=== PATIENT | male | born 1955 | race Caucasian/White ===

== ENCOUNTER 2016-04-08 15:58 | Emergency (ER) | payer BC | END 2016-04-08 18:55 | disposition home or self-care (01) | LOC: D.ER 15:58 | DX: R11.0 Nausea (principal); R79.89 Other specified abnormal findings of blood chemistry; E11.9 Type 2 diabetes mellitus without complications; I10 Essential (primary) hypertension ==

== ENCOUNTER 2017-09-29 03:12 | Emergency (ER) | payer BC ==
[~2017-09-29] VITALS: Ht 175.3 cm; Wt 84.1 kg
[2017-09-29 03:18] VITALS: Ht 175.3 cm; Wt 84.1 kg
[2017-09-29] MEDS ORDERED: NEURONTIN800 MG PO (03:19)
[2017-09-29] MEDS ORDERED: CRESTOR10 MG PO (03:20)
[2017-09-29] MEDS ORDERED: GLUCOPHAGE500 MG PO (03:20)
[2017-09-29] MEDS ORDERED: PRINIVIL20 MG PO (03:21)
[2017-09-29] MEDS ORDERED: FERROUS SULFAT325 MG PO (03:21)
[2017-09-29] MEDS ORDERED: VITAMIN B-122500 MCG PO (03:22)
[2017-09-29 04:01] LABS: BASOPHILS 0.7 % (0-2); EOSINOPHILS 3.5 % (0-7); IMMATURE GRANULOCYTES 0.2 % (0-5); LYMPHOCYTES 28.4 % (15-50); MCH 38.2 pg (26.0-34.0); MCHC 34.4 g/dL (31.0-37.0); MEAN PLATELET VOLUME 11.6 fL (7.4-10.4); MONOCYTES 13.1 % (2-11); NEUTROPHILS 54.1 % (40-80); PLATELET COUNT 113 10x3/uL (130-400); RDW 14.3 % (11.5-14.5); WBC 9.9 10x3/uL (4.8-10.8)
[2017-09-29 04:14] LABS: HEMATOCRIT 15.1 % (42.0-54.0); HEMOGLOBIN 5.2 g/dL (13.5-17.5); RBC 1.36 10x6/uL (4.20-6.10)
[2017-09-29 04:22] LABS: ALBUMIN 2.2 g/dL (3.4-5.0); ANION GAP 21.4 mmol/L (8-16); BILIRUBIN - TOTAL 2.87 mg/dL (0.2-1.3); CALCIUM 8.6 mg/dL (8.5-10.1); CARBON DIOXIDE 18.4 mmol/L (21.0-32.0); CREATININE - SERUM 3.2 mg/dL (0.6-1.3); POTASSIUM - SERUM 5.8 mmol/L (3.5-5.1); PROTEIN - SERUM 5.8 g/dL (6.4-8.2)
[2017-09-29 05:00] LABS: INR 1.81 (0.85-1.17); PROTIME 20.4 SECONDS (11.6-15.0)
[2017-09-29 05:08] LABS: APPEARANCE HAZY (CLEAR); COLOR YELLOW (YELLOW); GLUCOSE NEGATIVE (NEGATIVE); NITRITE NEGATIVE (NEGATIVE); PROTEIN NEGATIVE (NEGATIVE); SPECIFIC GRAVITY 1.015 (1.005-1.020)
[2017-09-29 05:09] LABS: BILIRUBIN NEGATIVE (NEGATIVE); EPITHELIAL CELLS NSEEN /hpf (0-5); KETONE MODERATE mg/dL (NEGATIVE); UROBILINOGEN NORMAL (NORMAL); WHITE CELLS - URINE NSEEN /hpf (0-5)
[2017-09-29 07:17] VITALS: BP 126/42
[2017-11-28 12:38] VITALS: Ht 175.3 cm; Wt 84.1 kg
== END 2017-09-29 07:17 | disposition other institution (70) ==
LOC: D.ER 03:12
PROVIDERS: Family Medicine
DX: R04.0 Epistaxis (principal); D62 Acute posthemorrhagic anemia; N17.9 Acute kidney failure, unspecified

== ENCOUNTER 2017-11-28 08:55 | Outpatient (CLI) | payer BC ==
[~2017-11-28] VITALS: Ht 175.3 cm; Wt 83.6 kg
[~2017-11-28 08:55] MED LIST: CRESTOR10 MG PO; FERROUS SULFAT325 MG PO; GLUCOPHAGE500 MG PO; NEURONTIN800 MG PO; PRINIVIL20 MG PO; VITAMIN B-122500 MCG PO
[2017-11-28 12:38] VITALS: Ht 175.3 cm; Wt 83.6 kg
[2017-11-28 16:13] LABS: BASOPHILS 1.1 % (0-2); EOSINOPHILS 4.7 % (0-7); HEMOGLOBIN 9.3 g/dL (13.5-17.5); IMMATURE GRANULOCYTES 0.2 % (0-5); LYMPHOCYTES 14.1 % (15-50); MCH 34.2 pg (26.0-34.0); MCHC 34.4 g/dL (31.0-37.0); MCV 99.3 fL (80.0-100.0); MEAN PLATELET VOLUME 11.4 fL (7.4-10.4); MONOCYTES 14.7 % (2-11); NEUTROPHILS 65.2 % (40-80); RBC 2.72 10x6/uL (4.20-6.10); RDW 19.4 % (11.5-14.5); WBC 6.4 10x3/uL (4.8-10.8)
[2017-11-28 16:26] LABS: PLATELET COUNT 78 10x3/uL (130-400)
[2017-11-28 18:28] LABS: PLATELET ESTIMATE DECREASED
== END 2017-11-28 16:10 | disposition home or self-care (01) ==
LOC: D.OPS 08:55
PROVIDERS: Family Medicine
DX: D64.9 Anemia, unspecified (principal); Z01.812 Encounter for preprocedural laboratory examination

== ENCOUNTER 2017-12-29 08:50 | Outpatient (CLI) | payer BC ==
[~2017-12-29] VITALS: Ht 175.3 cm; Wt 84.1 kg
[2017-12-29 10:23] VITALS: BP 123/63; Ht 175.3 cm; Wt 84.1 kg
== END 2017-12-29 16:30 | disposition home or self-care (01) ==
LOC: D.OPS 08:50
DX: D69.6 Thrombocytopenia, unspecified (principal); Z01.812 Encounter for preprocedural laboratory examination

== ENCOUNTER 2018-01-02 07:43 | Outpatient (CLI) | payer BC ==
[~2018-01-02] VITALS: Ht 175.3 cm; Wt 84.1 kg
[2018-01-02 08:12] LABS: BASOPHILS 1.7 % (0-2); EOSINOPHILS 9.8 % (0-7); HEMATOCRIT 26.6 % (42.0-54.0); HEMOGLOBIN 8.8 g/dL (13.5-17.5); IMMATURE GRANULOCYTES 0.6 % (0-5); LYMPHOCYTES 30.1 % (15-50); MCHC 33.1 g/dL (31.0-37.0); MCV 99.6 fL (80.0-100.0); MONOCYTES 12.2 % (2-11); NEUTROPHILS 45.6 % (40-80); RBC 2.67 10x6/uL (4.20-6.10); RDW 20.5 % (11.5-14.5); WBC 8.2 10x3/uL (4.8-10.8)
[2018-01-02 08:13] LABS: PLATELET COUNT 115 10x3/uL (130-400)
[2018-01-02 08:15] LABS: ANION GAP 18.3 mmol/L (8-16); CALCIUM 8.7 mg/dL (8.5-10.1); CARBON DIOXIDE 17.7 mmol/L (21.0-32.0); CREATININE - SERUM 1.9 mg/dL (0.6-1.3)
[2018-01-02 08:17] LABS: APTT 40.2 SECONDS (22.8-39.4); INR 1.52 (0.85-1.17); PROTIME 17.8 SECONDS (11.6-15.0)
[2018-01-02] MEDS ORDERED: VOLTAREN100 GM TOPICAL (09:08)
[2018-01-02] MEDS ORDERED: K-TAB10 MEQ PO (09:09)
[2018-01-02] MEDS ORDERED: FUROSEMIDE20 MG PO (09:09)
[2018-01-02] MEDS ORDERED: METOPROLOL TART50 MG PO (09:10)
[2018-01-02 09:13] VITALS: BP 94/43; Ht 175.3 cm; Wt 84.1 kg
== END 2018-01-02 13:45 | disposition home or self-care (01) ==
LOC: D.SP 07:43
PROVIDERS: Radiology Diagnostic Radiology
DX: D64.9 Anemia, unspecified (principal); Z01.812 Encounter for preprocedural laboratory examination

== ENCOUNTER 2018-01-23 15:15 | Inpatient (IN) | payer BC ==
[~2018-01-23] VITALS: Ht 175.3 cm; Wt 101.7 kg
--- NOTE | ~2018-01-23 | EC ---
PATIENT:RIVERA SANDOVAL DATE OF SERVICE: 01/24/18 SEX: M MEDICAL RECORD: [id number] DATE OF : 55 LOCATION:[facility] AGE OF PATIENT: 62 ADMISSION DATE: 01/24/18 REFERRING PHYSICIAN: INTERPRETING PHYSICIAN: BEN MAZARIEGOS MD ECHOCARDIOGRAM REPORT ECHO CHARGES 4 ECHO COMPLETE Date: 01/27/18 CLINICAL DIAGNOSIS: KIDNEY FAILURE, SOB ECHOCARDIOGRAPHIC MEASUREMENTS (adult normal given) AC root (d.<3.7cm) 2.8 cm LV Septum d (<1.2 cm> 1.2 cm Valve Excursion 1.5 cm LV Septum (systole) 2.0 cm Left Atria (s.<4.0cm> 2.8 cm LVPW d(<1.2cm) 1.3 cm RV (d.<2.3cm) 3.2 cm LVPW (sytole) 1.3 cm LV diastole(<5.6CM) 5.1 cm MV E-F(>70mm/sec) cm LV systole 4.3 cm LVOT Diameter 2.0 cm MV exc.(>10mm) cm Est.ejection fraction (50-75%) % DOPPLER: LVIT cm/sec A 79 cm/sec E 80 cm/sec LA cm/sec RVSP 20.8 mmHg LVOT 108 cm/sec AOP1/2T m/s Asc. Ao 154 cm/sec RVOT 128 cm/sec RA cm/sec PA 128 cm/sec AV Gradient Peak 9.5 mmHg AV Mean 6.6 mmHg AV Area 1.8 cm MV Gradient Peak 3.6 mmHg MV Mean 2.1 mmHg MV Area cm COMMENTS: Wire Brusher: Kristy LIAO [employer] Fabricator: Moon Mazariegos TAPE# PACS Pericardial Effusion N DATE OF SERVICE: PROCEDURE: Transthoracic echocardiogram. FINDINGS: 1. The left ventricle is hyperdynamic. Ejection fraction is 65% to 70%. 2. No regional wall motion abnormalities with inflow characteristics that are normal. 3. The aortic valve is normal. 4. The mitral valve is normal. ECHOCARDIOGRAM REPORT [id number] RIVERA SANDOVAL 5. The tricuspid valve is normal with trace tricuspid regurgitation. The RVSP is normal. 6. The right ventricle is mildly dilated. 7. The right atrium is normal. 8. The pulmonic valve is grossly normal. No significant pulmonic insufficiency. 9. There was no significant pericardial effusion. CONCLUSIONS: This is a normal echocardiogram with evidence of mild left ventricular hypertrophy, otherwise no significant pathology identified. TRANSINT:[id number] Voice Confirmation ID: [id number] DOCUMENT ID: [id number] BEN MAZARIEGOS MD at 0916 CC: [id number] DICTATION DATE: 01/28/18 1000 CFD ENGINEER: 01/28/18 1050 DIS IN 01/29/18 [id number] [place] [address]
--- NOTE | ~2018-01-23 | HEMODYNAMI ---
PATIENT:RIVERA SANDOVAL MEDICAL RECORD: [id number] : 55 LOCATION:[facility] D.2306 ADMISSION DATE: 01/24/18 Generatedon:01/28/201817:44 Patient name: RIVERA SANDOVAL Patient #: [id number] SSN: : 1955 Date of study: 01/28/2018 Page: Of Hemodynamic Procedure Report Patient Data Patient Demographics First Name: RIVERA Gender: Male Last Name: JAIME : 1955 Middle Initial: FLAQUITA Age: 62 year(s) Patient #: [id number] Race: Unknown Additional ID: [id number] Contact details Address: [address] [place], [place] [address] [facility] State: [place] City: [place] Zip code: [address] Admission Admission Data Admission Date: 01/24/2018 Admission Time: 8:33 Room #: D.2306 Height (in.): 69 BSA: 2.17 (m2) Height (cm.): 175.26 BMI: 33.08 (kg/m2) Weight (lbs.): 224 Weight (kg.): 101.6 Procedure Procedure Types Cath Procedure Peripheral Cath Diagnostic Procedure Frequency Checker Peripheral Procedures Abd/Extremity Visceral/Mesenteric Mesenteric Arteriogram (Abd Artery) Procedure Description Procedure Date Procedure Date: 01/28/2018 Procedure Start Time: 16:38 Procedure Staff Name Function Quinn Pacheco MD Performing Physician Dali Craven RT Vp Software Engineering Tennille Lim RN Nurse Rafael Greco RT Scrub Procedure Data Cath Procedure Fluoroscopy Diagnostic fluoroscopy Total fluoroscopy Time: 7.6 time: 7.6 min min Diagnostic fluoroscopy Total fluoroscopy dose: dose: 4058 mGy 4058 mGy Contrast Material Contrast Material Type Amount (ml) Isovue 300 95 Diagnostic catheters Device Type Used For End Catheter Placement Merit ULTRA BOLUS FLUSH 5Fr 65CM catheter ([id number]) Merit Impress 5Fr SIM 1 Catheter ([id number]) Angiodynamics SOS OMNI 2 NON B 5FR 65CM catheter ([id number]) Procedure Medications Medication Administration Route Dosage Heparin Flush Bag added to field 3 bags (1000units/500ml NS) Lidocaine 1% added to field 20 Benadryl I.V. 25 mg Versed I.V. 1 mg Hemodynamics Rest BSA: 2.17 (m2) O2 Consumption: Estimated: 295.12 (ml/min) O2 Consumption indexed : Estimated:136 (ml/min/m) Pre Cath Intra NCS Post Cath Vital Signs Time etCO2 NIBP (mmHg) Rhythm Pain Sedation (mmHg) Status Level 16:23:58 0 112/42(81) NSR 0 (11) , 10(A) No pain 16:28:17 0 122/39(67) NSR 0 (11) , 10(A) No pain 16:32:29 0 120/48(81) NSR 0 (11) , 10(A) No pain 16:36:45 0 117/40(84) NSR 0 (11) , 10(A) No pain 16:41:44 0 Measuring NSR 0 (11) , 10(A) No pain 16:41:58 0 103/40(83) NSR 0 (11) , 10(A) No pain 16:46:14 0 120/39(79) NSR 0 (11) , 10(A) No pain 16:50:28 0 122/48(76) NSR 0 (11) , 10(A) No pain 16:54:50 0 129/45(93) NSR 0 (11) , 10(A) No pain 16:59:49 0 Measuring NSR 0 (11) , 10(A) No pain 17:00:10 0 124/26(84) NSR 0 (11) , 10(A) No pain 17:04:30 0 129/44(93) NSR 0 (11) , 10(A) No pain 17:08:50 0 130/48(100) NSR 0 (11) , 10(A) No pain 17:13:49 0 Measuring NSR 0 (11) , 10(A) No pain 17:14:09 0 128/43(81) NSR 0 (11) , 10(A) No pain 17:18:30 0 131/41(87) NSR 0 (11) , 10(A) No pain 17:22:48 0 130/44(89) NSR 0 (11) , 10(A) No pain 17:27:10 0 128/47(82) NSR 0 (11) , 10(A) No pain 17:31:34 0 138/45(94) NSR 0 (11) , 10(A) No pain 17:35:58 0 126/41(91) NSR 0 (11) , 10(A) No pain 17:40:23 0 123/41(81) NSR 0 (11) , 10(A) No pain Medications Time Medication Route Dose Verified Delivered Reason Notes Effec tiveness by by 16:35:24 Heparin Flush added 3 Quinn Ball used for Bag to bags Tara Pacheco procedure (1000units/500ml field MD LORENZO NS) 16:35:35 Lidocaine 1% added 20ml Quinn Ball used for to vial Tara Pacheco procedure field MD LORENZO 16:44:50 Benadryl I.V. 25 mg Quinn Null for Tara Lim RN sedation 16:45:01 Versed I.V. 1 mg Quinn Null for Tara Lim RN sedation Procedure Log Time Note 16:03:35 Patient Height : 69 inches 16:03:44 Patient Weight : 224 lbs 16:04:12 Use device set IR Diagnostic 16:06:12 BENTSON 145cm wire ([id number]) opened to sterile field. 16:06:13 Micropuncture VSI 4FR kit opened to sterile field. 16:06:14 SHEATH 5FR Claiborne (TUI533) opened to sterile field. 16:06:15 TUBING Contrast Injection High Pressure (OSL251O) opened to sterile field. 16:06:16 Tegaderm 4 x 4 (1626W) opened to sterile field. 16:06:17 Sterile Angiographic Pack opened to sterile field. 16:06:18 Bag Decanter (2002S) opened to sterile field. 16:06:19 ACIST Manifold (18922) opened to sterile field. 16:06:20 ACIST Hand Control (17127) opened to sterile field. 16:06:21 ACIST Syringe (16293) opened to sterile field. 16:22:46 Vital chart was started 16:24:32 Time tracking: Call back (After hours or weekends) 16:24:40 Plan of Care:Hemodynamics will remain stable., Cardiac rhythm will remain stable., Comfort level will be maintained., Respiratory function will remain adequate., Patient/ family verbilizes understanding of procedure., Procedure tolerated without complication., Recovers from procedure without complications.. 16:24:54 Patient received from ICU to IR on bypap machine in resp.distress. Tansferred to table in Supine position. 16:26:49 patient in resp distress on by pap. unable to obtain answers for pre anesthesia 16:27:36 - 16:27:55 H&P Date Dictated: 01/28/2018 Emergent; H&P N/A. 16:28:00 Family in waiting room. 16:28:03 Patient NPO since Midnight. 16:28:08 Is the patient allergic to Iodine/contrast media? No. 16:28:16 - 16:29:06 A Merit ULTRA BOLUS FLUSH 5Fr 65CM catheter ([id number]) was advanced over the wire and used for . 16:29:10 A Merit Impress 5Fr SIM 1 Catheter ([id number]) was advanced over the wire and used for . 16:35:12 - 16:35:17 Physician arrived 16:35:20 --------ALL STOP TIME OUT------ 16:35:21 Final Timeout: patient, procedure, and site verified with staff and physician. All members of the team are in agreement. 16:35:24 Heparin Flush Bag (1000units/500ml NS) 3 bags added to field was administered by Quinn Pacheco MD; used for procedure; 16:35:35 Lidocaine 1% 20ml vial added to field was administered by Quinn esquivel MD; used for procedure; 16:38:31 Procedure started. 16:38:31 Full Disclosure recording started 16:38:37 Local anesthetic to left femerol artery with Lidocaine 1% by Quinn Pacheco MD.INITIAL ACCESS ONLY 16:44:23 Angiography was performed. 16:44:50 Benadryl 25 mg I.V. was administered by Tennille Lim RN; for sedation; 16:45:01 Versed 1 mg I.V. was administered by Tennille Lim RN; for sedation; 16:51:03 TRANSEND STEERABLE wire ([id number]) opened to sterile field. 16:51:23 Direxion Straight Microcatheter ([id number]) opened to sterile field. 16:53:20 A AngioQuench OMNI 2 NON B 5FR 65CM catheter ([id number]) was advanced over the wire and used for . 17:06:39 COIL HILAL 2.0-2 (O83462) opened to sterile field. 17:09:26 COIL HILAL 2.0-2 (Q77175) opened to sterile field. 17:12:28 COIL HILAL 2.0-2 (S36732) opened to sterile field. 17:18:29 A second vessel is accessed to embolize. 17:18:29 COIL Micronester 3mm (S30684) opened to sterile field. 17:20:24 COIL Micronester 3mm (R02034) opened to sterile field. 17:22:00 COIL Micronester 3mm (Z35001) opened to sterile field. 17:22:06 COIL Micronester 3mm (L58910) opened to sterile field. 17:25:26 pt on bipap. o2 and hr monitored on icu monitor 17:26:16 Tegaderm 6 x 8 (1628) opened to sterile field. 17:27:44 Dr. Pacheco sutered in the 5 portuguese sheath with 2.0 silk. 17:28:02 Procedure ended.(Physican Out) 17:28:48 Fluoroscopy time 07.60 minutes. 17:28:58 Fluoroscopy dose: 4058 mGy 17:28:58 Flurop Dose total: 4058 17:29:07 Contrast amount:Isovue 300 95ml. 17:29:10 Sharps counted by scrub and verified . 17:30:04 2.0 silk was sutured in with ?. 17:30:19 5 portuguese sheath was sutured in with 2.0 silk and covered with 4x4 and 6x8 tegaderm. 17:33:13 Patient needs reinforcement of post procedure teaching. 17:33:30 Procedure and supply charges have been captured, reviewed, submitted an d are correct. 17:35:41 See physician's report for complete and final results. 17:43:43 Report given to ICU. 17:43:46 Patient transfered to ICU with Bed. 17:44:15 Vital chart was stopped Device Usage Item Name Manufacture Quantity Catalog Number Hospital Part Current M inimal Lot# / Charge Number Stock Stock Serial# Code SHAYLA 145cm Cook Medical 1 [id number] [id number] 5 wire ([id number]) Micropuncture VSI VASCULAR 1 [id number] 288164 455966 5 VSI 4FR kit SOLUTIONS SHEATH 5FR Terumo 1 [id number] 736491 474036 158910 4 0 Claiborne (TRE164) TUBING [facility] Medical 1 [id number] 490876 244586 636771 5 Contrast Injection High Pressure ([id number]) Tegaderm 4 x 4 3M 1 1626W 763212 709818 579143 5 (1626W) Sterile Cardinal 1 [id number] 122992 689881 5 Angiographic Health Pack Bag Decanter Microtek 1 877252 56284 968719 5 () Medical Inc. ACIST Manifold Acist Medical 1 75414 925650 529574 965943 5 (82563) Systems Inc ACIST Hand Acist Medical 1 89754 618377 988630 906824 5 Control Systems Inc (18587) ACIST Syringe Acist Medical 1 81096 829378 445772 400554 2 0 (94949) Systems Inc Happy Inspector ULTRA [facility] Medical 1 [id number] 286560 014588 5 BOLUS FLUSH 5Fr 65CM catheter ([id number]) Merit Impress Merit Medical 1 [id number] 750082 524746 178342 5 5Fr SIM 1 Catheter ([id number]) TRANSEND [place] 1 [id number] 043225 069284 5 STEERABLE wire Scientific ([id number]) Direxion [place] 1 [id number] 192297 499159 397511 5 Straight Scientific Microcatheter ([id number]) Angiodynamics Angiodynamics 1 [id number] 950043 59716 565806 5 SOS OMNI 2 NON B 5FR 65CM catheter ([id number]) COIL HILAL BeGo [facility] 3 O60155 516999 960859 5 2700506 2.0-2 (J45880) 6780173 0769442 COIL BeGo [facility] 4 D14128 309678 873907 1 [id number] Micronester [id number] 3mm (Q48811) 7012001 0666577 Tegaderm 6 x 8 3M 1 1624 507787 616359 5 (1628) Signature Audit [place] Stage Time Signature Unsigned Intra-Procedure 01/28/2018 Rafael 5:44:13 PM [place] RT (R) (CV) [facility] [address] [facility] [place] [address]
--- NOTE | ~2018-01-23 | OP ---
PATIENT NAME: RIVERA SANDOVAL MEDICAL RECORD: [id number] :55 LOCATION:[facility] D.2306 ADMISSION DATE:01/24/18 SURGEON: LASHAY REYNA MD DATE OF OPERATION: 01/25/2018 PROCEDURE: EGD with biopsy. SORTING GRAPPLE OPERATOR: Lashay Reyna MD SCOPE: Olympus video gastroscope. MEDICATIONS: Per TIVA anesthesia. The patient received 90 mg of propofol for this procedure, O2 at 4 liters. REASON FOR THE EGD: Profound anemia with no obvious source of bleeding. Of note, the patient had an EGD approximately 1 month ago in [place] at the [facility] and reportedly this procedure was unremarkable. The patient also had a colonoscopy with Dr. Sorensen last year, which did not have any significant findings per the patient. The patient has been experiencing nausea, vomiting, without obvious bleeding, but does have risk factors for use of nonsteroidal anti-inflammatory drugs and alcohol. His hemoglobin was 6 on admission and to date, he has received 5 units of packed red blood cells and 1 unit of pheresed platelets and 2 units of FFP. The patient has acute kidney insufficiency and is on dialysis. Additionally, he has possibly early liver failure with coagulopathy, encephalopathy, elevated liver enzymes, fatty infiltration of the liver, and splenomegaly. For his anemia, which has been ongoing for the past couple of months, it should be noted that he had a severe nosebleed, which could have attributed back a month ago to the low hemoglobin and hematocrit, but this should have resolved by at this time as he did have photocoagulation of the septum. The patient has had a bone marrow biopsy with Dr. Faith, which was normal. We are looking for a source of this continued blood loss and he will have an EGD this date. FINDINGS: Informed consent was given. The patient was made comfortable with the above medications and after reaching an adequate level of sedation by slow IV push, the patient was placed on his left side. The endoscope was then advanced under direct visualization through the posterior pharyngeal area and advanced to the distal esophagus. Erosions were seen in this area likely due to gastroesophageal reflux disease and biopsies were obtained as well as photodocumentation. No ulcers or stricture was appreciated. On entering the stomach, global erythema, edema, and inflammation were noted throughout. The tissue was congested, inflamed, erythematous, but no ulcers were seen. Multiple biopsies were taken of marked inflammation at the antral area for histopathology and to look for the presence of H. pylori. The duodenal bulb was also markedly congested with irritation, erythema, and edema, and biopsies were obtained. There appears to be some functional narrowing as a result of this and this could be impacting on the problem of pancreatitis. We will evaluate the patient's liver, pancreas, and spleen in more detail with a CT of the abdomen and pelvis, which will be done without IV contrast tonight. We will attempt to get the patient to drink some oral contrast if he is able. He possibly has ascites at this time as his abdomen is distended. The scope was then withdrawn. OPERATIVE REPORT [id number] RIVERA SANDOVAL IMPRESSION: 1. Erosive esophagitis. No ulcers. No stricture seen. 2. Global gastric severe inflammation with erythema, edema, and congestion, most pronounced at the antral area and biopsied. 3. Marked inflammation, functional narrowing, congestion, erythema, and edema of the duodenal bulb and C loop. This may be adding to the problem of pancreatitis. Multiple biopsies obtained. The second portion of the duodenum had inflammation and congestion, but to a lesser extent. PLAN: 1. Protonix drip at 8 mg an hour. 2. Carafate slurry 1 g p.o. q.i.d. 3. Famotidine 40 mg at bedtime. 4. No anti-inflammatory drugs. 5. Follow liver function test, amylase and lipase. 6. CT of the abdomen and pelvis tonight without IV contrast, but with oral contrast. TRANSINT:[id number] Voice Confirmation ID: [id number] DOCUMENT ID: [id number] LASHAY REYNA MD at 1304 CC: [id number] DICTATION DATE: 01/25/18 182 PANAMA HAT HYDRAULIC PRESS OPERATOR: 01/26/18 0257 DIS IN 01/29/18 [facility] [address] [id number]
--- NOTE | ~2018-01-23 | DS ---
PATIENT:RIVERA SANDOVAL :55 MEDICAL RECORD: [id number] DISCHARGE SUMMARY ADMISSION DATE: 01/24/18 DISCHARGE DATE: 01/29/18 DATE OF ADMISSION: 01/24/2018 DATE OF DISCHARGE: The patient on 01/29/2018 Cause of the patient's was hemorrhage. The patient was originally admitted for acute blood loss anemia. OTHER DIAGNOSES: Include fall from standing and posterior rib fractures on the right. The patient had bleeding infarcted bowel I believe during his hospital stay. CONSULTATIONS: Included gastroenterology, interventional radiology, general surgery, pulmonology, intensive care, nephrology. HOSPITAL COURSE: The patient had multiple blood transfusions. He had coil embolization of bleeding blood vessels by Dr. Pacheco. The patient on 01/29/2018 at 0154 and was pronounced at 0154. The wire photo operator news was notified. Mandrel Maker notified was Dr. Boris Edmondson at 0245. The home notified was [facility] Release authorization is received from Josefina Mejia, the patient's . TRANSINT:[id number] Voice Confirmation ID: [id number] DOCUMENT ID: [id number] FRANCHESKA SANCHEZ MD at 0950 CC: [id number] DICTATION DATE: 02/14/18 1503 AMMUNITION STORAGE SUPERINTENDENT: 02/15/18 0017 DIS IN 01/29/18 [facility] [address] [place] [address]
[~2018-01-23 15:15] MED LIST changes: +FUROSEMIDE20 MG PO; +K-TAB10 MEQ PO; +METOPROLOL TART50 MG PO; +VOLTAREN100 GM TOPICAL
[2018-01-23] MEDS ORDERED: NEURONTIN 400400 MG PO (15:48)
[2018-01-23] MEDS ORDERED: ZOFRAN ODT4 MG/UDTAB PO (15:49)
[2018-01-23 16:15] VITALS: BP 117/36
[2018-01-23 19:18] LABS: % SATURATION 46 % (15-55); IRON 84 ug/dl (35-150); TOTAL IRON BIND CAPACITY 182 ug/dl (260-445); UNSAT IRON BIND CAPACITY 98 ug/dl (150-375)
[2018-01-23 20:00] VITALS: BP 95/39
[2018-01-23 22:00] LABS: HEMOGLOBIN 6.2 g/dL (13.5-17.5)
[2018-01-24] VITALS (21 sets, daily range): BP systolic 90–141; BP diastolic 31–75; Ht 175.3 cm; Wt 101.7 kg
[2018-01-24 07:14] LABS: BASOPHILS 0.8 % (0-2); EOSINOPHILS 7.9 % (0-7); IMMATURE GRANULOCYTES 0.2 % (0-5); LYMPHOCYTES 13.3 % (15-50); MCH 35.1 pg (26.0-34.0); MCHC 35.1 g/dL (31.0-37.0); MEAN PLATELET VOLUME 12.1 fL (7.4-10.4); MONOCYTES 14.8 % (2-11); WBC 8.3 10x3/uL (4.8-10.8)
[2018-01-24 07:26] LABS: PLATELET COUNT 59 10x3/uL (130-400)
[2018-01-24 07:28] LABS: HEMATOCRIT 17.1 % (42.0-54.0); INR 2.46 (0.85-1.17); RBC 1.71 10x6/uL (4.20-6.10)
[2018-01-24 07:33] LABS: ALBUMIN 2.2 g/dL (3.4-5.0); ANION GAP 22.6 mmol/L (8-16); BILIRUBIN - TOTAL 3.61 mg/dL (0.2-1.3); CALCIUM 7.7 mg/dL (8.5-10.1); CARBON DIOXIDE 15.7 mmol/L (21.0-32.0); CHOL - HDL RATIO 13.6 ratio (2.3-4.9); CREATININE - SERUM 8.6 mg/dL (0.6-1.3); LDL-HDL RATIO 10.6 ratio (1.5-3.5); PRE-ALBUMIN 10.4 mg/dL (18.0-35.7); PROTEIN - SERUM 6.6 g/dL (6.4-8.2)
[2018-01-24 07:58] LABS: POTASSIUM - SERUM 7.3 mmol/L (3.5-5.1)
[2018-01-24 09:56] LABS: HEMATOCRIT 20.3 % (42.0-54.0)
[2018-01-24 09:59] LABS: HEMOGLOBIN 7.1 g/dL (13.5-17.5)
[2018-01-24 17:01] LABS: HEMATOCRIT 21.4 % (42.0-54.0)
[2018-01-24 17:09] LABS: HEMOGLOBIN 7.3 g/dL (13.5-17.5)
[2018-01-24 17:19] LABS: ANION GAP 24.8 mmol/L (8-16); CALCIUM 8.2 mg/dL (8.5-10.1); CARBON DIOXIDE 15.8 mmol/L (21.0-32.0); CREATININE - SERUM 8.5 mg/dL (0.6-1.3)
[2018-01-24 17:42] LABS: POTASSIUM - SERUM 7.6 mmol/L (3.5-5.1)
[2018-01-25] VITALS (24 sets, daily range): BP systolic 71–149; BP diastolic 42–125
[2018-01-25 00:50] LABS: HEMATOCRIT 21.6 % (42.0-54.0); HEMOGLOBIN 7.7 g/dL (13.5-17.5)
[2018-01-25 04:41] LABS: BASOPHILS 0.5 % (0-2); EOSINOPHILS 6.6 % (0-7); HEMATOCRIT 25.6 % (42.0-54.0); IMMATURE GRANULOCYTES 0.2 % (0-5); LYMPHOCYTES 10.8 % (15-50); MCH 31.9 pg (26.0-34.0); MCHC 35.2 g/dL (31.0-37.0); MEAN PLATELET VOLUME 11.5 fL (7.4-10.4); MONOCYTES 11.8 % (2-11); NEUTROPHILS 70.1 % (40-80); PLATELET COUNT 60 10x3/uL (130-400); WBC 8.3 10x3/uL (4.8-10.8)
[2018-01-25 04:53] LABS: PROTIME 21.4 SECONDS (11.6-15.0)
[2018-01-25 04:54] LABS: MCV 90.8 fL (80.0-100.0); RBC 2.82 10x6/uL (4.20-6.10)
[2018-01-25 04:59] LABS: INR 1.92 (0.85-1.17)
[2018-01-25 05:23] LABS: ALBUMIN 2.4 g/dL (3.4-5.0); BILIRUBIN - DIRECT 2.42 mg/dL (0.00-0.30); BILIRUBIN - INDIRECT 2.86 mg/dL (0.00-1.00); BILIRUBIN - TOTAL 5.28 mg/dL (0.2-1.3); CALCIUM 7.8 mg/dL (8.5-10.1); PHOSPHOROUS 6.6 mg/dL (2.5-4.9); PROTEIN - SERUM 6.6 g/dL (6.4-8.2)
[2018-01-25 05:26] LABS: CARBON DIOXIDE 27.8 mmol/L (21.0-32.0); CREATININE - SERUM 6.2 mg/dL (0.6-1.3); POTASSIUM - SERUM 4.8 mmol/L (3.5-5.1)
[2018-01-25 08:01] LABS: HEMATOCRIT 25.3 % (42.0-54.0); HEMOGLOBIN 9.1 g/dL (13.5-17.5)
[2018-01-25 14:47] LABS: HEMATOCRIT 25.3 % (42.0-54.0); HEMOGLOBIN 8.9 g/dL (13.5-17.5)
[2018-01-25 21:29] LABS: HEMOGLOBIN 7.5 g/dL (13.5-17.5)
[2018-01-26] VITALS (70 sets, daily range): BP systolic 61–171; BP diastolic 29–114
[2018-01-26 04:29] LABS: BASOPHILS 0.5 % (0-2); EOSINOPHILS 2.4 % (0-7); HEMATOCRIT 22.6 % (42.0-54.0); HEMOGLOBIN 7.6 g/dL (13.5-17.5); IMMATURE GRANULOCYTES 0.2 % (0-5); MCH 29.3 pg (26.0-34.0); MCHC 33.6 g/dL (31.0-37.0); MEAN PLATELET VOLUME 10.8 fL (7.4-10.4); MONOCYTES 16.6 % (2-11); NEUTROPHILS 68.3 % (40-80); PLATELET COUNT 59 10x3/uL (130-400); RBC 2.59 10x6/uL (4.20-6.10); RDW 17.7 % (11.5-14.5); WBC 8.6 10x3/uL (4.8-10.8)
[2018-01-26 04:36] LABS: MCV 87.3 fL (80.0-100.0)
[2018-01-26 04:47] LABS: INR 2.34 (0.85-1.17)
[2018-01-26 05:03] LABS: ALBUMIN 1.9 g/dL (3.4-5.0); BILIRUBIN - TOTAL 6.05 mg/dL (0.2-1.3); CALCIUM 7.3 mg/dL (8.5-10.1); CARBON DIOXIDE 25.2 mmol/L (21.0-32.0); CREATININE - SERUM 6.4 mg/dL (0.6-1.3); PHOSPHOROUS 7.9 mg/dL (2.5-4.9)
[2018-01-26 05:05] LABS: ANION GAP 16.6 mmol/L (8-16); POTASSIUM - SERUM 5.8 mmol/L (3.5-5.1); PROTEIN - SERUM 4.7 g/dL (6.4-8.2)
[2018-01-26 09:49] LABS: HEMATOCRIT 23.1 % (42.0-54.0)
[2018-01-26 10:21] LABS: ANA REFLEX - DIRECT Negative (Negative)
[2018-01-26 11:19] LABS: ALPHA FETOPROTEIN -(TUMOR MRK) 2.7 ng/mL (0.0-8.3); CA 19-9 226 U/mL (0-35); CEA 7.6 ng/mL (0.0-4.7)
[2018-01-26 12:16] LABS: EBV - EARLY ANTIGEN AB IGG <9.0 U/mL (0.0-8.9); EBV VIRAL CAPSID AB IGM <36.0 U/mL (0.0-35.9)
[2018-01-26 14:48] LABS: HEMATOCRIT 30.5 % (42.0-54.0); HEMOGLOBIN 10.4 g/dL (13.5-17.5)
[2018-01-26 15:24] LABS: PARVOVIRUS B-19 - IGM 0.4 index (0.0-0.8)
[2018-01-26 15:36] LABS: APTT 43.9 SECONDS (22.8-39.4); INR 2.23 (0.85-1.17)
[2018-01-26 16:15] LABS: ADAMTS13 ACTIVITY 92.8 % (>66.8)
[2018-01-26 18:42] LABS: HEMOGLOBIN 8.7 g/dL (13.5-17.5)
[2018-01-26 19:12] LABS: CKMB 3.4 U/L (0.0-3.6); CREATINE KINASE 2493 UL (21-232)
[2018-01-26 19:13] LABS: TROPONIN-I 0.125 ng/mL (0.000-0.060)
[2018-01-27] VITALS (74 sets, daily range): BP systolic 72–148; BP diastolic 42–99
[2018-01-27 00:09] LABS: HEMATOCRIT 25.3 % (42.0-54.0); HEMOGLOBIN 8.8 g/dL (13.5-17.5)
[2018-01-27 05:19] LABS: BASOPHILS 0.2 % (0-2); EOSINOPHILS 3.4 % (0-7); HEMATOCRIT 23.9 % (42.0-54.0); HEMOGLOBIN 8.3 g/dL (13.5-17.5); IMMATURE GRANULOCYTES 0.2 % (0-5); LYMPHOCYTES 6.2 % (15-50); MCH 30.2 pg (26.0-34.0); MCHC 34.7 g/dL (31.0-37.0); MCV 86.9 fL (80.0-100.0); MEAN PLATELET VOLUME 10.7 fL (7.4-10.4); MONOCYTES 10.3 % (2-11); NEUTROPHILS 79.7 % (40-80); RBC 2.75 10x6/uL (4.20-6.10); RDW 15.8 % (11.5-14.5)
[2018-01-27 05:35] LABS: PLATELET COUNT 69 10x3/uL (130-400); WBC 18.5 10x3/uL (4.8-10.8)
[2018-01-27 05:37] LABS: ALBUMIN 2.2 g/dL (3.4-5.0); ANION GAP 21.8 mmol/L (8-16); BILIRUBIN - TOTAL 8.45 mg/dL (0.2-1.3); CALCIUM 7.9 mg/dL (8.5-10.1); CARBON DIOXIDE 21.8 mmol/L (21.0-32.0); CREATININE - SERUM 7.1 mg/dL (0.6-1.3); POTASSIUM - SERUM 5.6 mmol/L (3.5-5.1); PROTEIN - SERUM 5.2 g/dL (6.4-8.2)
[2018-01-27 05:49] LABS: PHOSPHOROUS 9.7 mg/dL (2.5-4.9)
[2018-01-27 05:50] LABS: APTT 43.6 SECONDS (22.8-39.4); INR 2.07 (0.85-1.17); PROTIME 22.7 SECONDS (11.6-15.0)
[2018-01-27 06:21] LABS: APPEARANCE CLOUDY (CLEAR); BILIRUBIN NEGATIVE (NEGATIVE); COLOR YELLOW (YELLOW); GLUCOSE NEGATIVE (NEGATIVE); KETONE NEGATIVE (NEGATIVE); NITRITE NEGATIVE (NEGATIVE); PROTEIN 3+ mg/dL (NEGATIVE); SPECIFIC GRAVITY 1.015 (1.005-1.020); UROBILINOGEN NORMAL (NORMAL)
[2018-01-27 06:22] LABS: BACTERIA MANY /hpf (NONE SEEN); EPITHELIAL CELLS 0-5 /hpf (0-5); RED CELLS - URINE 0-5 /hpf (0-5); WHITE CELLS - URINE 0-5 /hpf (0-5)
[2018-01-27 17:15] LABS: HEMATOCRIT 26.8 % (42.0-54.0); HEMOGLOBIN 9.2 g/dL (13.5-17.5)
[2018-01-27 21:47] LABS: INR 2.34 (0.85-1.17)
[2018-01-28] VITALS (79 sets, daily range): BP systolic 64–141; BP diastolic 28–63
[2018-01-28 05:57] LABS: BASOPHILS 0.1 % (0-2); EOSINOPHILS 0.8 % (0-7); IMMATURE GRANULOCYTES 0.3 % (0-5); LYMPHOCYTES 10.5 % (15-50); MCH 30.4 pg (26.0-34.0); MCHC 33.9 g/dL (31.0-37.0); NEUTROPHILS 73.3 % (40-80); PLATELET COUNT 55 10x3/uL (130-400); RDW 16.5 % (11.5-14.5); WBC 16.5 10x3/uL (4.8-10.8)
[2018-01-28 06:03] LABS: RBC 1.84 10x6/uL (4.20-6.10)
[2018-01-28 06:04] LABS: HEMATOCRIT 16.5 % (42.0-54.0); HEMOGLOBIN 5.6 g/dL (13.5-17.5); MCV 89.7 fL (80.0-100.0)
[2018-01-28 06:38] LABS: ANION GAP 23.4 mmol/L (8-16); CALCIUM 8.2 mg/dL (8.5-10.1); CARBON DIOXIDE 20.5 mmol/L (21.0-32.0); CREATININE - SERUM 6.2 mg/dL (0.6-1.3); POTASSIUM - SERUM 4.9 mmol/L (3.5-5.1)
[2018-01-28 06:40] LABS: PHOSPHOROUS 9.9 mg/dL (2.5-4.9)
[2018-01-28 06:42] LABS: APTT 48.6 SECONDS (22.8-39.4)
[2018-01-28 06:58] LABS: INR 2.98 (0.85-1.17); PROTIME 30.2 SECONDS (11.6-15.0)
[2018-01-28 12:28] LABS: BILIRUBIN - DIRECT 4.23 mg/dL (0.00-0.30); BILIRUBIN - INDIRECT 4.79 mg/dL (0.00-1.00); BILIRUBIN - TOTAL 9.02 mg/dL (0.2-1.3)
[2018-01-28 13:07] LABS: MITOCHONDRIAL ANTIBODY 9.9 Units (0.0-20.0); SMOOTH MUSCLE ABS (ACTIN) 27 Units (0-19)
[2018-01-28 13:57] LABS: HEMATOCRIT 26.3 % (42.0-54.0); HEMOGLOBIN 8.7 g/dL (13.5-17.5)
[2018-01-28 14:04] LABS: INR 2.65 (0.85-1.17); PROTIME 27.6 SECONDS (11.6-15.0)
[2018-01-28 14:20] LABS: APTT 62.1 SECONDS (22.8-39.4)
[2018-01-28 18:15] LABS: HEMATOCRIT 30.4 % (42.0-54.0); HEMOGLOBIN 9.9 g/dL (13.5-17.5)
[2018-01-28 22:34] LABS: HEMATOCRIT 28.5 % (42.0-54.0); HEMOGLOBIN 9.5 g/dL (13.5-17.5)
[2018-01-28 22:44] LABS: APTT 62.2 SECONDS (22.8-39.4); INR 3.22 (0.85-1.17); PROTIME 32.2 SECONDS (11.6-15.0)
[2018-01-29] VITALS: BP 91/40
[2018-01-29 00:15] VITALS: BP 85/37
[2018-01-29 00:30] VITALS: BP 86/38
[2018-01-29 00:45] VITALS: BP 95/41
[2018-01-29 01:00] VITALS: BP 97/38
[2018-01-29 01:15] VITALS: BP 98/37
== END 2018-01-29 01:54 | DRG 907 ==
LOC: D.SDCHOLD 15:15 → D.ICU 15:20 → D.M2 15:20 → OBSVTIME 15:20 → D.M2 15:20 → D.ICU 01-24 08:33
PROVIDERS: Family Medicine; Internal Medicine Cardiovascular Disease; Internal Medicine Gastroenterology; Internal Medicine Hematology & Oncology; Internal Medicine Nephrology; Radiology Diagnostic Radiology; Surgery
PROC: 0DB78ZX Excision of Stomach, Pylorus, Via Natural or Artificial Opening Endoscopic, Diagnostic (ICD-10-PCS; 2018-01-25)
PROC: 05HM33Z Insertion of Infusion Device into Right Internal Jugular Vein, Percutaneous Approach (ICD-10-PCS; 2018-01-26)
PROC: 04L53DZ Occlusion of Superior Mesenteric Artery with Intraluminal Device, Percutaneous Approach (ICD-10-PCS; principal; 2018-01-28 16:30)
DX: S36.898A Other injury of other intra-abdominal organs, initial encounter (principal); K66.1 Hemoperitoneum; K85.90 Acute pancreatitis without necrosis or infection, unspecified; N17.0 Acute kidney failure with tubular necrosis; D62 Acute posthemorrhagic anemia; K22.10 Ulcer of esophagus without bleeding; I48.92 Unspecified atrial flutter; D68.9 Coagulation defect, unspecified; R57.8 Other shock; W19.XXXA Unspecified fall, initial encounter; Z66 Do not resuscitate; K70.31 Alcoholic cirrhosis of liver with ascites; R16.1 Splenomegaly, not elsewhere classified; R09.02 Hypoxemia; E11.9 Type 2 diabetes mellitus without complications; I10 Essential (primary) hypertension; R11.2 Nausea with vomiting, unspecified; K29.70 Gastritis, unspecified, without bleeding; I95.9 Hypotension, unspecified; K72.90 Hepatic failure, unspecified without coma; E87.5 Hyperkalemia; D69.6 Thrombocytopenia, unspecified; S30.0XXA Contusion of lower back and pelvis, initial encounter; F10.10 Alcohol abuse, uncomplicated; I72.8 Aneurysm of other specified arteries